=== PATIENT | female | born 2000 | race Caucasian/White ===

== ENCOUNTER 2021-06-24 11:18 | Outpatient (REF) | payer BC, SELFPAY ==
--- NOTE | ~2021-06-24 | XR_ITS ---
EXAMINATION: XR TOES, RIGHT CLINICAL INFORMATION: Right toe pain COMPARISON: None TECHNIQUE: 3 views of the right fifth toe FINDINGS: Views of the right fifth toe are inconclusive if there may be a nondisplaced tuft fracture. No definite fractures identified and no dislocation is seen. There is some soft tissue swelling present. XR/XR toe RT min 2V IMPRESSION: Soft tissue swelling without definite fracture identified.
== END 2021-06-24 11:19 | disposition home or self-care (01) ==
LOC: HO.HMGCX 11:18
PROVIDERS: PCP Family Medicine; Visit Provider Hospitalist
DX: Z13.89 Encounter for screening for other disorder (principal)
CPT/HCPCS: 73660